=== PATIENT | male | born 1970 | race Caucasian/White ===

== ENCOUNTER 2023-03-06 23:48 | Emergency (ER) | payer OTHER ==
[2023-03-06 23:53] VITALS: BP 119/84; RESP 18; TEMP 98.1
--- NOTE | 2023-03-07 00:57 | ED ---
URI HPI - General Chief Complaint: Upper Respiratory Infection Stated Complaint: Low O2 Time Seen by Provider: 03/07/23 00:43 Source: patient, family Mode of arrival: ambulatory Limitations: no limitations - History of Present Illness Initial Comments: Patient is a 52-year-old male presenting to the emergency room with complaints of cough congestion and inability to take in a deep breath ongoing for approximately 3 days. He reports that his cough is typically nonproductive. He also reports that his oxygen levels at home have been low at times measuring 92% on room air. He reports a history of asthma but no significant asthma problems as an adult. He is a pack-a-day smoker of cigarettes and also smokes marijuana regularly. He states that he has an inhaler at home and has attempted to use it to treat his symptoms recently without any relief in his symptoms. He denies any excessive exposure to poor outdoor air quality conditions recently. He has continued to smoke. He denies any other symptoms including any chest pain, abdominal pain, nausea, vomiting, known viral exposure, fevers or chills. In addition to his asthma history as a past medical history significant for hypertension, hyperlipidemia and chronic back pain. - Related Data Previous Rx's Medication Instructions Recorded Azithromycin [Zithromax Z Pack] 1 tab PO DIRECTED 4 Days #4 tab 03/07/23 Allergies Allergy/AdvReac Type Severity Reaction Status Date / Time Penicillins Allergy Unknown Verified 03/06/23 23:54 Childhood Review of Systems ROS Statement: Those systems with pertinent positive or pertinent negative responses have been documented in the HPI. ROS Other: All systems not noted in ROS Statement are negative. Past Medical History Past Medical History: Asthma, Hyperlipidemia, Hypertension Additional Past Medical History / Comment(s): back pain History of Any Multi-Drug Resistant Organisms: None Reported Past Surgical History: No Surgical Hx Reported Past Psychological History: No Psychological Hx Reported Smoking Status: Current every day smoker Past Alcohol Use History: None Reported Past Drug Use History: Marijuana General Exam Limitations: no limitations General appearance: alert, in no apparent distress Head exam: Present: atraumatic, normocephalic, normal inspection Eye exam: Present: normal appearance, PERRL, EOMI. Absent: scleral icterus, conjunctival injection, periorbital swelling ENT exam: Present: normal exam, mucous membranes moist Neck exam: Present: normal inspection, full ROM Respiratory exam: Present: decreased breath sounds (Throughout), other (Nonproductive cough). Absent: respiratory distress, wheezes, rales, rhonchi, stridor, accessory muscle use Cardiovascular Exam: Present: regular rate, normal rhythm, normal heart sounds. Absent: systolic murmur, diastolic murmur, rubs, gallop, clicks GI/Abdominal exam: Present: soft, normal bowel sounds. Absent: distended, tenderness, guarding, rebound, rigid Extremities exam: Present: normal inspection. Absent: pedal edema, joint swelling Back exam: Present: normal inspection, full ROM Neurological exam: Present: alert, oriented X3, CN II-XII intact Psychiatric exam: Present: normal affect, normal mood Skin exam: Present: warm, dry, intact, normal color. Absent: rash Course Vital Signs 03/06/23 23:50 Temperature 98.1 F Pulse Rate 87 Respiratory 18 Rate Blood Pressure 119/84 O2 Sat by Pulse 97 Oximetry Medical Decision Making - Medical Decision Making Was pt. sent in by a medical professional or institution (, PA, ENERGY PROJECT MANAGER, urgent care, hospital, or [facility]...) When possible be specific @ -No Did you speak to anyone other than the patient for history (EMS, parent, family, police, friend...)? What history was obtained from this source @ -No Did you review nursing and triage notes (agree or disagree)? Why? @ -I reviewed and agree with nursing and triage notes Were old charts reviewed (outside hosp., previous admission, EMS record, old EKG, old radiological studies, urgent care reports/EKG's, [facility] records)? Report findings @ -No old charts were reviewed Differential Diagnosis (chest pain, altered mental status, abdominal pain women, abdominal pain men, vaginal bleeding, weakness, fever, dyspnea, syncope, headache, dizziness, GI bleed, back pain, seizure, CVA, palpatations, mental health, musculoskeletal)? @ -Differential Dyspnea: Coronary syndrome, arrhythmia, tamponade, asthma, COPD, pulmonary embolism, pneumonia, pneumothorax, pulmonary effusion, anaphylaxis, diabetic ketoacidosis, flailed chest, pulmonary contusion, diaphragmatic rupture, anemia, neuromuscular, this is not meant to be an all-inclusive list. EKG interpreted by me (3pts min.). @ -None done X-rays interpreted by me (1pt min.). @ -Chest x-ray two-view: Hyperinflation with upper lobe opacity on lateral view concerning for atypical upper lobe pneumonia. No lower lobe consolidation. CT interpreted by me (1pt min.). @ -None done U/S interpreted by me (1pt. min.). @ -None done What testing was considered but not performed or refused? (CT, X-rays, U/S, labs)? Why? @ -None What meds were considered but not given or refused? Why? @ -None Did you discuss the management of the patient with other professionals (professionals i.e. , PA, ENERGY PROJECT MANAGER, lab, RT, psych nurse, professor of social work, neck band setter, teacher, svp chief marketing officer, adult protective caseworker)? Give summary @ -No Was smoking cessation discussed for >3mins.? @ -I discussed smoking cessation for greater than 3 minutes. The risk of smoking were discussed with the patient including but not limited to risks of cancer, stroke, coronary artery disease and COPD. Also discussed with patient were multiple methods of quitting smoking. Lastly we discussed the financial cost of smoking. Was critical care preformed (if so, how long)? @ -No Were there social determinants of health that impacted care today? How? (Homelessness, low income, unemployed, alcoholism, drug addiction, transportation, low edu. Level, literacy, decrease access to med. care, [facility], rehab)? @ -No Was there de-escalation of care discussed even if they declined (Discuss DNR or withdrawal of care, Hospice)? DNR status @ -No What co-morbidities impacted this encounter? (DM, HTN, Smoking, COPD, CAD, Cancer, CVA, ARF, Chemo, Hep., AIDS, mental health diagnosis, sleep apnea, mor bid obesity)? @ -Smoker with asthma history Was patient admitted / discharged? Hospital course, mention meds given and route, prescriptions, significant lab abnormalities, going to OR and other pertinent info. @ -52-year-old male presenting to the emergency room with complaints of cough, congestion occasional hypoxemia and difficulty taking in a deep breath ongoing for a few days without any other associated symptoms. History of asthma and known smoker pack per day. Will start workup for upper respiratory infection with CBC, CMP, para swabbing for COVID, influenza and RSV along with chest x- ray. No wheeze or hypoxemia on exam no indication for medication administration at this time. Chest x-ray with opacity on lateral view concerning for atypical pneumonia in the upper lobes, clear bibasilar and hyper and inflation noted consistent with COPD. CBC unremarkable. CMP demonstrates elevated glucose 109 and low protein at 6.2 no other abnormalities. Vital swabbing for COVID, RSV and influenza all negative. No indication for further diagnostic imaging or laboratory studies at this time. Findings discussed with patient. Advised high probability for atypical pneumonia will give oral dose of Zithromax now and prescribe remaining Z-Keith to his pharmacy to start tomorrow. Encouraged smoking sensation and avoidance of prolonged exposure to current poor air qualities. Questions and concerns answered. Return parameters to the emergency room discussed. Will discharge home in stable condition on Zithromax to treat atypical pneumonia advising smoking sensation and follow-up with primary care provider. Undiagnosed new problem with uncertain prognosis? @ -No Drug Therapy requiring intensive monitoring for toxicity (Heparin, Nitro, Insulin, Cardizem)? @ -No Were any procedures done? @ -No Diagnosis/symptom? @ -Atypical upper lobe pneumonia Acute, or Chronic, or Acute on Chronic? @ -Acute Uncomplicated (without systemic symptoms) or Complicated (systemic symptoms)? @ -Uncomplicated Side effects of treatment? @ -No Exacerbation, Progression, or Severe Exacerbation? @ -No Poses a threat to life or bodily function? How? (Chest pain, USA, MS, pneumonia, PE, COPD, DKA, ARF, appy, cholecystitis, CVA, Diverticulitis, Homicidal, Suicidal, threat to staff... and all critical care pts) @ -No Case discussed with Dr. Amanda. - Lab Data Result diagrams: 03/07/23 01:12 03/07/23 01:12 Lab Results 03/07/23 03/07/23 03/07/23 Range/Units 01:12 01:12 01:12 WBC 7.7 (3.8-10.6) k/uL RBC 4.50 (4.30-5.90) m/uL Hgb 14.6 (13.0-17.5) gm/dL Hct 42.3 (39.0-53.0) % MCV 93.9 (80.0-100.0) fL MCH 32.3 (25.0-35.0) pg MCHC 34.4 (31.0-37.0) g/dL RDW 13.0 (11.5-15.5) % Plt Count 305 (150-450) k/uL MPV 7.2 Neutrophils % 57 % Lymphocytes % 30 % Monocytes % 8 % Eosinophils % 3 % Basophils % 0 % Neutrophils # 4.4 (1.3-7.7) k/uL Lymphocytes # 2.3 (1.0-4.8) k/uL Monocytes # 0.6 (0-1.0) k/uL Eosinophils # 0.3 (0-0.7) k/uL Basophils # 0.0 (0-0.2) k/uL Sodium 137 (137-145) mmol/L Potassium 4.3 (3.5-5.1) mmol/L Chloride 105 (98-107) mmol/L Carbon Dioxide 27 (22-30) mmol/L Anion Gap 5 mmol/L BUN 18 (9-20) mg/dL Creatinine 0.88 (0.66-1.25) mg/dL Est GFR (CKD-EPI)AfAm >90 (>60 ml/min/1.73 sqM) Est GFR (CKD-EPI)NonAf >90 (>60 ml/min/1.73 sqM) Glucose 109 H (74-99) mg/dL Calcium 9.7 (8.4-10.2) mg/dL Total Bilirubin 0.3 (0.2-1.3) mg/dL AST 24 (17-59) U/L ALT 20 (4-49) U/L Alkaline Phosphatase 76 (38-126) U/L Total Protein 6.2 L (6.3-8.2) g/dL Albumin 3.8 (3.5-5.0) g/dL Influenza Type A (PCR) Not Detected (Not Detectd) Influenza Type B (PCR) Not Detected (Not Detectd) RSV (PCR) Not Detected (Not Detectd) SARS-CoV-2 (PCR) Not Detected (Not Detectd) - Radiology Data Radiology results: image reviewed Disposition Clinical Impression: Atypical pneumonia Disposition: HOME SELF-CARE Condition: Stable Instructions (If sedation given, give patient instructions): Upper Respiratory Infection (ED), Bacterial Pneumonia (ED) Additional Instructions: Please complete course of antibiotic as prescribed. Smoking sensation encouraged. Avoid excessive exposure to outdoor air environments due to poor air quality at this time. Please follow-up with your primary care provider. Please return to the Emergency Department if symptoms worsen or any other concerns. Prescriptions: Azithromycin [Zithromax Z Pack] 1 tab PO DIRECTED 4 Days #4 tab Is patient prescribed a controlled substance at d/c from ED?: No Referrals: None,Stated [Primary Care Provider] - 1-2 days
[2023-03-07 01:31] LABS: Basophils % (A) 0 %; Eosinophils # (A) 0.3 k/uL (0-0.7); Eosinophils % (A) 3 %; HCT 42.3 % (39.0-53.0); HGB 14.6 gm/dL (13.0-17.5); Lymphocytes # (A) 2.3 k/uL (1.0-4.8); Lymphocytes % (A) 30 %; MCH 32.3 pg (25.0-35.0); MCHC 34.4 g/dL (31.0-37.0); MCV 93.9 fL (80.0-100.0); Mean Platelet Volume 7.2; Monocytes # (A) 0.6 k/uL (0-1.0); Monocytes % (A) 8 %; Neutrophils # (A) 4.4 k/uL (1.3-7.7); Neutrophils % (A) 57 %; Platelet Count 305 k/uL (150-450); WBC 7.7 k/uL (3.8-10.6)
[2023-03-07 01:35] LABS: ALT 20 U/L (4-49); AST 24 U/L (17-59); African American GFR (CKD) >90 (>60 ml/min/1.73 sqM); Albumin 3.8 g/dL (3.5-5.0); Alkaline Phosphatase 76 U/L (38-126); Anion Gap 5 mmol/L; Blood Urea Nitrogen 18 mg/dL (9-20); Calcium 9.7 mg/dL (8.4-10.2); Carbon Dioxide 27 mmol/L (22-30); Chloride 105 mmol/L (98-107); Glucose 109 mg/dL (74-99); Non-African American GFR(CKD) >90 (>60 ml/min/1.73 sqM); Potassium 4.3 mmol/L (3.5-5.1); Sodium 137 mmol/L (137-145); Total Bilirubin 0.3 mg/dL (0.2-1.3); Total Protein 6.2 g/dL (6.3-8.2)
[2023-03-07] MEDS ORDERED: AZITHROMYCIN 500 MG TAB PO STA (02:12)
--- NOTE | 2023-03-07 02:12 | XR ---
EXAM: XR Chest, 2 Views CLINICAL HISTORY: ITS.REASON XR Reason: dyspnea TECHNIQUE: Frontal and lateral views of the chest. COMPARISON: No relevant prior studies available. FINDINGS: Lungs: No consolidation or mass. Pleural space: No effusion. Heart: No cardiomegaly. Bones/joints: No acute findings. IMPRESSION: No acute cardiopulmonary process.
[2023-03-07 03:05] VITALS: PULSE 65
== END 2023-03-07 03:05 | disposition home or self-care (01) ==
LOC: EC 23:48
DX: J18.9 Pneumonia, unspecified organism (principal); J45.909 Unspecified asthma, uncomplicated; I10 Essential (primary) hypertension; F17.200 Nicotine dependence, unspecified, uncomplicated; F12.90 Cannabis use, unspecified, uncomplicated; Z88.0 Allergy status to penicillin; Z20.822 Contact with and (suspected) exposure to COVID-19
CPT/HCPCS: 36415; 71046; 80053; 85025; 87636; 99283

== ENCOUNTER 2023-05-01 03:37 | Emergency (ER) | payer OTHER ==
[2023-05-01 03:42] VITALS: RESP 18
--- NOTE | 2023-05-01 04:20 | ED ---
Headache HPI <Sai Le - Last Filed: 05/01/23 07:44> - General Source: RN notes reviewed, old records reviewed Mode of arrival: ambulatory Limitations: no limitations - History of Present Illness MD Complaint: headache, "migraine" -: hour(s) Onset Description: gradual Location: temporal, diffuse Severity: moderate Severity scale (1-10): 7 Quality: throbbing Consistency: constant Improves With: nothing Worsens With: none Associated Symptoms: nausea, vomiting, weakness Other Symptoms: other (0) Treatments Prior to Arrival: none <Shaun Amanda - Last Filed: 05/05/23 01:21> - General Chief Complaint: Headache Stated Complaint: Headache, V/N Time Seen by Provider: 05/01/23 03:39 - History of Present Illness Initial Comments: This is a 52-year-old male to the emergency department for evaluation. Patient has multiple complaints today. Bodyaches body pains headache and neck pain chest pain back pain weakness not feeling well and nausea. Patient is unsure of onset of symptoms. But thinks he has been feeling bad throughout most of the day. No fevers no sick contacts no travel history (Shaun Amanda) - Related Data Previous Rx's Medication Instructions Recorded Azithromycin [Zithromax Z Pack] 1 tab PO DIRECTED 4 Days #4 tab 03/07/23 Nirmatrelvir/Ritonavir [Paxlovid 3 each PO BID #30 each 05/01/23 300-100 mg Pack (Eua)] Albuterol Sulfate [Albuterol 1 puff PO Q4-6H #8.5 gm 05/03/23 Sulfate Hfa] Allergies Allergy/AdvReac Type Severity Reaction Status Date / Time Penicillins Allergy Unknown Verified 05/03/23 06:39 Childhood Review of Systems ROS Other: All systems not noted in ROS Statement are negative. <Sai Le - Last Filed: 05/01/23 07:44> ROS Other: All systems not noted in ROS Statement are negative. <Shaun Amanda - Last Filed: 05/05/23 01:21> ROS Statement: Those systems with pertinent positive or pertinent negative responses have been documented in the HPI. Past Medical History Past Medical History: Asthma, Hyperlipidemia, Hypertension Additional Past Medical History / Comment(s): back pain History of Any Multi-Drug Resistant Organisms: None Reported Past Surgical History: No Surgical Hx Reported Past Psychological History: No Psychological Hx Reported Smoking Status: Current every day smoker Past Alcohol Use History: None Reported Past Drug Use History: Marijuana <Shaun Amanda - Last Filed: 05/05/23 01:21> General Exam Limitations: no limitations General appearance: alert, in no apparent distress, anxious Head exam: Present: atraumatic, normocephalic, normal inspection Eye exam: Present: normal appearance, PERRL, EOMI. Absent: scleral icterus, conjunctival injection, periorbital swelling ENT exam: Present: normal exam, mucous membranes moist Neck exam: Present: normal inspection. Absent: tenderness, meningismus, lymphadenopathy Respiratory exam: Present: normal lung sounds bilaterally. Absent: respiratory distress, wheezes, rales, rhonchi, stridor Cardiovascular Exam: Present: regular rate, normal rhythm, normal heart sounds. Absent: systolic murmur, diastolic murmur, rubs, gallop, clicks GI/Abdominal exam: Present: soft, normal bowel sounds. Absent: distended, tenderness, guarding, rebound, rigid Extremities exam: Present: normal inspection, full ROM, normal capillary refill. Absent: tenderness, pedal edema, joint swelling, calf tenderness Back exam: Present: normal inspection Neurological exam: Present: alert, oriented X3, CN II-XII intact Psychiatric exam: Present: normal affect, normal mood Skin exam: Present: warm, dry, intact, normal color. Absent: rash <Shaun Amanda - Last Filed: 05/05/23 01:21> Course <Shaun Amanda - Last Filed: 05/05/23 01:21> Vital Signs 05/01/23 05/01/23 03:39 07:22 Temperature 98.8 F 97 F L Pulse Rate 101 H 68 Respiratory 18 18 Rate Blood Pressure 120/80 132/82 O2 Sat by Pulse 98 96 Oximetry - Reevaluation(s) Reevaluation #1: 05/01/23 06:07 Medical record is reviewed (Shaun Amanda) Reevaluation #2: 05/01/23 06:08 Patient symptoms are improving (Shaun Amanda) Reevaluation #3: Patient informed results and questions answered (Shaun Amanda) Reevaluation #4: 05/01/23 04:20 Was pt. sent in by a medical professional or institution (MAGDI Bright, MARINE UNDERWRITER, urgent care, hospital, or jail...) When possible be specific @ -no Did you speak to anyone other than the patient for history (EMS, parent, family, police, friend...)? What history was obtained from this source @ -no Did you review nursing and triage notes (agree or disagree)? Why? @ -agree Are old charts reviewed (outside hosp., previous admission, EMS record, old EKG, old radiological studies, urgent care reports/EKG's, jail records)? Report findings @ -yes Differential Diagnosis (chest pain, altered mental status, abdominal pain women, abdominal pain men, vaginal bleeding, weakness, fever, dyspnea, syncope, headache, dizziness, GI bleed, back pain, seizure, CVA, palpatations, mental health, musculoskeletal)? @ -prior EKG interpreted by me (3pts min.). @ -no X-rays interpreted by me (1pt min.). @ -no CT interpreted by me (1pt min.). @ -yes U/S interpreted by me (1pt. min.). @ -no What testing was considered but not performed or refused? (CT, X-rays, U/S, labs)? Why? @ -none What meds were considered but not given or refused? Why? @ -none Did you discuss the management of the patient with other professionals (professionals i.e. MAGDI Bright, MARINE UNDERWRITER, lab, RT, psych nurse, social welfare clerk, watch technician, teacher, wildlife officer, onsite case manager)? Give summary @ -no Was smoking cessation discussed for >3mins.? @ -no Was critical care preformed (if so, how long)? @ -no Were there social determinants of health that impacted care today? How? (Homelessness, low income, unemployed, alcoholism, drug addiction, transportation, low edu. Level, literacy, decrease access to med. care, senior living, rehab)? @ -none Was there de-escalation of care discussed even if they declined (Discuss DNR or withdrawal of care, Hospice)? DNR status @ -no What co-morbidities impacted this encounter? (DM, HTN, Smoking, COPD, CAD, Cancer, CVA, ARF, Chemo, Hep., AIDS, mental health diagnosis, sleep apnea, mo rbid obesity)? @ -none Was patient admitted / discharged? Hospital course, mention meds given and r oute, prescriptions, significant lab abnormalities, going to OR and other pertinent info. @ - 52 male to the emergency department today. He presents to the ER with multiple complaints, headache and diffuse body aches and pains. Patient is positive for coronavirus Discharged Undiagnosed new problem with uncertain prognosis? @ -no Drug Therapy requiring intensive monitoring for toxicity (Heparin, Nitro, Insulin, Cardizem)? @ -no Were any procedures done? @ -no Diagnosis/symptom? @ -Coronavirus, headache Acute, or Chronic, or Acute on Chronic? @ -Acute Uncomplicated (without systemic symptoms) or Complicated (systemic symptoms)? @ -Complicated Side effects of treatment? @ -no Exacerbation, Progression, or Severe Exacerbation? @ -exacerbation Poses a threat to life or bodily function? How? (Chest pain, USA, AR, pneumonia, PE, COPD, DKA, ARF, appy, cholecystitis, CVA, Diverticulitis, Homicidal, Suicidal, threat to staff... and all critical care pts) @ -Yes with severe headache cause of headache could be life-threatening (Shaun Amanda) Reevaluation #5: Differential Headache: Migraine, tension, cluster, carbon monoxide, central venous thrombosis, pension karma temporal arteritis, acute closure glaucoma, intercranial hemorrhage, mastoiditis, sinusitis, head injury, this is not meant to be an all-inclusive li st.0 (Shaun Amanda) Medical Decision Making - Lab Data Result diagrams: 05/01/23 04:54 05/01/23 04:54 <Sai Le - Last Filed: 05/01/23 07:44> - Lab Data Result diagrams: 05/01/23 04:54 05/01/23 04:54 - Radiology Data Radiology results: report reviewed (CT brain is negative for acute disease), image reviewed <Shaun Amanda - Last Filed: 05/05/23 01:21> - Medical Decision Making Case endorsed to me by Dr. Wilson For probable discharge head CT negative. Patient reevaluated and resting comfortably in bed. Patient complains of cough and congestion and fatigue and myalgias. COVID-19 test positive. Patient updated. Patient is receptive to antibiotic prescription and this will be sent to pharmacy. Diagnosis: COVID-19 Acute (Sai Le) 52 male to the emergency department today. He presents to the ER with multiple complaints, headache and diffuse body aches and pains. Patient is positive for coronavirus (Shaun Amanda) - Lab Data Lab Results 05/01/23 05/01/23 05/01/23 Range/Units 04:54 04:54 04:54 WBC 8.0 (3.8-10.6) k/uL RBC 4.42 (4.30-5.90) m/uL Hgb 14.0 (13.0-17.5) gm/dL Hct 41.6 (39.0-53.0) % MCV 94.1 (80.0-100.0) fL MCH 31.7 (25.0-35.0) pg MCHC 33.7 (31.0-37.0) g/dL RDW 13.3 (11.5-15.5) % Plt Count 205 (150-450) k/uL MPV 7.5 Neutrophils % 74 % Lymphocytes % 10 % Monocytes % 14 % Eosinophils % 1 % Basophils % 0 % Neutrophils # 5.9 (1.3-7.7) k/uL Lymphocytes # 0.8 L (1.0-4.8) k/uL Monocytes # 1.1 H (0-1.0) k/uL Eosinophils # 0.1 (0-0.7) k/uL Basophils # 0.0 (0-0.2) k/uL PT 10.3 (9.0-12.0) sec INR 1.0 (<1.2) APTT 27.6 (22.0-30.0) sec Sodium 138 (137-145) mmol/L Potassium 3.6 (3.5-5.1) mmol/L Chloride 106 (98-107) mmol/L Carbon Dioxide 24 (22-30) mmol/L Anion Gap 8 mmol/L BUN 13 (9-20) mg/dL Creatinine 1.03 (0.66-1.25) mg/dL Est GFR (CKD-EPI)AfAm >90 (>60 ml/min/1.73 sqM) Est GFR (CKD-EPI)NonAf 85 (>60 ml/min/1.73 sqM) Glucose 95 (74-99) mg/dL Calcium 9.1 (8.4-10.2) mg/dL Phosphorus 3.2 (2.5-4.5) mg/dL Magnesium 1.8 (1.6-2.3) mg/dL Total Bilirubin 0.4 (0.2-1.3) mg/dL AST 26 (17-59) U/L ALT 19 (4-49) U/L Alkaline Phosphatase 78 (38-126) U/L Troponin I (0.000-0.034) ng/mL C-Reactive Protein 1.2 H (<1.0) mg/dL NT-Pro-B Natriuret Pep 44 pg/mL Total Protein 6.6 (6.3-8.2) g/dL Albumin 4.0 (3.5-5.0) g/dL TSH 0.268 L (0.465-4.680) mIU/L Urine Color Urine Appearance (Clear) Urine pH (5.0-8.0) Ur Specific [place] (1.001-1.035) Urine Protein (Negative) Urine Glucose (UA) (Negative) Urine Ketones (Negative) Urine Blood (Negative) Urine Nitrite (Negative) Urine Bilirubin (Negative) Urine Urobilinogen (<2.0) mg/dL Ur Leukocyte Esterase (Negative) Urine RBC (0-5) /hpf Urine WBC (0-5) /hpf Ur Squamous Epith Cells (0-4) /hpf Urine Mucus (None) /hpf Influenza Type A (PCR) (Not Detectd) Influenza Type B (PCR) (Not Detectd) RSV (PCR) (Not Detectd) SARS-CoV-2 (PCR) (Not Detectd) 05/01/23 05/01/23 05/01/23 Range/Units 04:54 05:10 05:31 WBC (3.8-10.6) k/uL RBC (4.30-5.90) m/uL Hgb (13.0-17.5) gm/dL Hct (39.0-53.0) % MCV (80.0-100.0) fL MCH (25.0-35.0) pg MCHC (31.0-37.0) g/dL RDW (11.5-15.5) % Plt Count (150-450) k/uL MPV Neutrophils % % Lymphocytes % % Monocytes % % Eosinophils % % Basophils % % Neutrophils # (1.3-7.7) k/uL Lymphocytes # (1.0-4.8) k/uL Monocytes # (0-1.0) k/uL Eosinophils # (0-0.7) k/uL Basophils # (0-0.2) k/uL PT (9.0-12.0) sec INR (<1.2) APTT (22.0-30.0) sec Sodium (137-145) mmol/L Potassium (3.5-5.1) mmol/L Chloride (98-107) mmol/L Carbon Dioxide (22-30) mmol/L Anion Gap mmol/L BUN (9-20) mg/dL Creatinine (0.66-1.25) mg/dL Est GFR (CKD-EPI)AfAm (>60 ml/min/1.73 sqM) Est GFR (CKD-EPI)NonAf (>60 ml/min/1.73 sqM) Glucose (74-99) mg/dL Calcium (8.4-10.2) mg/dL Phosphorus (2.5-4.5) mg/dL Magnesium (1.6-2.3) mg/dL Total Bilirubin (0.2-1.3) mg/dL AST (17-59) U/L ALT (4-49) U/L Alkaline Phosphatase (38-126) U/L Troponin I <0.012 (0.000-0.034) ng/mL C-Reactive Protein (<1.0) mg/dL NT-Pro-B Natriuret Pep pg/mL Total Protein (6.3-8.2) g/dL Albumin (3.5-5.0) g/dL TSH (0.465-4.680) mIU/L Urine Color Yellow Urine Appearance Clear (Clear) Urine pH 5.5 (5.0-8.0) Ur Specific [place] 1.035 (1.001-1.035) Urine Protein 1+ H (Negative) Urine Glucose (UA) Negative (Negative) Urine Ketones Negative (Negative) Urine Blood Trace H (Negative) Urine Nitrite Negative (Negative) Urine Bilirubin Negative (Negative) Urine Urobilinogen <2.0 (<2.0) mg/dL Ur Leukocyte Esterase Negative (Negative) Urine RBC 2 (0-5) /hpf Urine WBC 1 (0-5) /hpf Ur Squamous Epith Cells <1 (0-4) /hpf Urine Mucus Many H (None) /hpf Influenza Type A (PCR) Not Detected (Not Detectd) Influenza Type B (PCR) Not Detected (Not Detectd) RSV (PCR) Not Detected (Not Detectd) SARS-CoV-2 (PCR) Detected A (Not Detectd) Disposition Is patient prescribed a controlled substance at d/c from ED?: No Time of Disposition: 07:46 <Sai Le - Last Filed: 05/01/23 07:44> Is patient prescribed a controlled substance at d/c from ED?: No <Shaun Amanda - Last Filed: 05/05/23 01:21> Clinical Impression: COVID-19, Headache, Weakness, Coronavirus infection Disposition: HOME SELF-CARE Condition: Stable Instructions (If sedation given, give patient instructions): Acute Headache (ED), COVID-19 (Coronavirus Disease 2019) (ED) Additional Instructions: Prescription sent to pharmacy. [id number] vitamin C, vitamin D, and clean. Tylenol as needed. Return for difficulty breathing, not tolerating fluids, worsening symptoms or other concerns. Prescriptions: Nirmatrelvir/Ritonavir [Paxlovid 300-100 mg Pack (Eua)] 3 each PO BID #30 each Referrals: Ilya Kelly MD [STAFF PHYSICIAN] - 1-2 days
[2023-05-01] MEDS ORDERED: KETOROLAC 15 MG/ML 1 ML VIAL IVP STA (04:44)
[2023-05-01] MEDS ORDERED: SODIUM CHLORIDE 0.9% 1,000 ML IV STA ×2 (04:44)
[2023-05-01] MEDS ORDERED: MORPHINE SULFATE 4 MG/ML SYRINGE IV STA (04:44)
[2023-05-01] MEDS ORDERED: ACETAMINOPHEN IV (For NPO) 1,000 MG in EMPTY BAG 1 BAG IVPB STA (04:44)
[2023-05-01 05:37] LABS: Calcium 9.1 mg/dL (8.4-10.2); Magnesium 1.8 mg/dL (1.6-2.3); Potassium 3.6 mmol/L (3.5-5.1); Sodium 138 mmol/L (137-145)
[2023-05-01 05:38] LABS: ALT 19 U/L (4-49); AST 26 U/L (17-59); African American GFR (CKD) >90 (>60 ml/min/1.73 sqM); Alkaline Phosphatase 78 U/L (38-126); Anion Gap 8 mmol/L; Blood Urea Nitrogen 13 mg/dL (9-20); C Reactive Protein 1.2 mg/dL (<1.0); Carbon Dioxide 24 mmol/L (22-30); Chloride 106 mmol/L (98-107); Glucose 95 mg/dL (74-99); Non-African American GFR(CKD) 85 (>60 ml/min/1.73 sqM); Phosphorus 3.2 mg/dL (2.5-4.5); Total Bilirubin 0.4 mg/dL (0.2-1.3); Total Protein 6.6 g/dL (6.3-8.2)
[2023-05-01 05:45] LABS: NT-Pro-B-Type Natriuretic Pept 44 pg/mL
[2023-05-01 05:52] LABS: Basophils % (A) 0 %; Eosinophils # (A) 0.1 k/uL (0-0.7); Eosinophils % (A) 1 %; HCT 41.6 % (39.0-53.0); Lymphocytes # (A) 0.8 k/uL (1.0-4.8); Lymphocytes % (A) 10 %; MCH 31.7 pg (25.0-35.0); MCHC 33.7 g/dL (31.0-37.0); MCV 94.1 fL (80.0-100.0); Mean Platelet Volume 7.5; Monocytes # (A) 1.1 k/uL (0-1.0); Monocytes % (A) 14 %; Neutrophils # (A) 5.9 k/uL (1.3-7.7); Neutrophils % (A) 74 %; Platelet Count 205 k/uL (150-450); RBC 4.42 m/uL (4.30-5.90); RDW 13.3 % (11.5-15.5)
[2023-05-01 05:56] LABS: Partial Thromboplastin Time 27.6 sec (22.0-30.0); Prothrombin Time 10.3 sec (9.0-12.0)
[2023-05-01 06:04] LABS: Appearance,Urine Clear (Clear); Bilirubin,Urine Negative (Negative); Blood,Urine Trace (Negative); Glucose,Urine (UA) Negative (Negative); Ketones,Urine Negative (Negative); Leukocyte Esterase,Urine Negative (Negative); Mucus,Urine Many /hpf; Nitrite,Urine Negative (Negative); PH, Urine 5.5 (5.0-8.0); Protein,Urine 1+ (Negative); RBC,Urine 2 /hpf (0-5); Specific Gravity,Urine 1.035 (1.001-1.035); Squamous Epithelial Cell,Urine <1 /hpf (0-4); Urobilinogen,Urine <2.0 mg/dL (<2.0); WBC,Urine 1 /hpf (0-5)
[2023-05-01 06:37] LABS: Color,Urine Yellow
[2023-05-01] MEDS ORDERED: diphenhydrAMINE 50 MG/ML 1 ML VIAL IVP STA (06:37)
[2023-05-01] MEDS ORDERED: PROCHLORPERAZINE INJ 10 MG/2 ML VIAL IVP STA (06:37)
[2023-05-01] MEDS ORDERED: MORPHINE SULFATE 4 MG/ML SYRINGE IVP STA (06:37)
[2023-05-01 07:25] VITALS: BP 132/82; PULSE 68; TEMP 97
--- NOTE | 2023-05-01 07:29 | CT ---
History EXAMINATION TYPE: CT brain wo con DATE OF EXAM: 05/01/2023 COMPARISON: None HISTORY: Headache CT DLP: 1277.[address] of the brain was performed. The ventricles, basal cisterns and sulci overlying the cerebral convexities demonstrate mild enlargem ent. There is no evidence for intracranial hemorrhage or sulcal effacement. There is decreased attenuation about the periventricular white matter and deep white matter of both c erebral hemispheres, compatible with chronic small vessel ischemia. Differential diagnosis does inclu de demyelination. No mass effects are seen.No midline shift. Osseous calvarium is intact. If symptoms persist consider MRI. IMPRESSION: 1. Age related atrophic and chronic small vessel ischemic change without acute intracranial process s een at this time.
== END 2023-05-01 08:06 | disposition home or self-care (01) ==
LOC: EC 03:37
DX: U07.1 COVID-19 (principal); I67.82 Cerebral ischemia; J45.909 Unspecified asthma, uncomplicated; I10 Essential (primary) hypertension; F17.200 Nicotine dependence, unspecified, uncomplicated; F12.90 Cannabis use, unspecified, uncomplicated; Z88.0 Allergy status to penicillin
CPT/HCPCS: 36415; 83880; 80053; 83735; 84100; 84443; 84484; 85025; 85610; 85730; 86140; 81001; 87636; 70450; 99284; 96365; 96375 ×4; 96361 ×3; 96376; J2270; J1200; J0780; J0131; J1885

== ENCOUNTER 2023-05-03 06:30 | Emergency (ER) | payer OTHER ==
[2023-05-03 06:39] VITALS: BP 133/85; PULSE 68; TEMP 97.9
--- NOTE | 2023-05-03 07:07 | ED ---
General Adult HPI - General Chief complaint: Shortness of Breath Stated complaint: COVID SYMPTOMS SOB Time Seen by Provider: 05/03/23 06:43 Source: patient, family, RN notes reviewed, old records reviewed Mode of arrival: ambulatory Limitations: no limitations - History of Present Illness Initial comments: Nontoxic-appearing 52-year-old male presents to the emergency room with family complaining of continued shortness of breath after seen in the ER 2 days ago and diagnosed with coronavirus. Today states his pulse ox at home was reading lower 90s. He is taking the Paxlovid as presccribed. States he does have a history of childhood asthma but does not have albuterol. Is a daily smoke with history of hypertension and high cholesterol. Does not have primary care doctor. -: days(s) (5) Location: pelvis Quality: constant Consistency: constant Associated Symptoms: cough, malaise, shortness of breath Treatments Prior to Arrival: other (paxlovid) - Related Data Previous Rx's Medication Instructions Recorded Azithromycin [Zithromax Z Pack] 1 tab PO DIRECTED 4 Days #4 tab 03/07/23 Nirmatrelvir/Ritonavir [Paxlovid 3 each PO BID #30 each 05/01/23 300-100 mg Pack (Eua)] Albuterol Sulfate [Albuterol 1 puff PO Q4-6H #8.5 gm 05/03/23 Sulfate Hfa] Allergies Allergy/AdvReac Type Severity Reaction Status Date / Time Penicillins Allergy Unknown Verified 05/03/23 06:39 Childhood Review of Systems ROS Statement: Those systems with pertinent positive or pertinent negative responses have been documented in the HPI. ROS Other: All systems not noted in ROS Statement are negative. Past Medical History Past Medical History: Asthma, Hyperlipidemia, Hypertension Additional Past Medical History / Comment(s): back pain History of Any Multi-Drug Resistant Organisms: None Reported Past Surgical History: No Surgical Hx Reported Past Psychological History: No Psychological Hx Reported Smoking Status: Current every day smoker, Vaper Past Alcohol Use History: None Reported Past Drug Use History: Marijuana General Exam Limitations: no limitations General appearance: alert, in no apparent distress Head exam: Present: atraumatic, normocephalic Eye exam: Present: normal appearance. Absent: scleral icterus, conjunctival injection, periorbital swelling ENT exam: Present: normal oropharynx, mucous membranes moist Neck exam: Present: full ROM. Absent: tenderness, meningismus Respiratory exam: Present: normal lung sounds bilaterally. Absent: respiratory distress, wheezes, rales, rhonchi, stridor, accessory muscle use, decreased breath sounds Cardiovascular Exam: Present: regular rate GI/Abdominal exam: Present: soft. Absent: distended, tenderness, guarding, rebound, rigid Extremities exam: Present: normal capillary refill Back exam: Absent: tenderness Neurological exam: Present: alert, oriented X3 Psychiatric exam: Present: normal affect, normal mood Skin exam: Present: warm, dry, normal color. Absent: cyanosis, diaphoretic, petechiae, pallor Course Vital Signs 05/03/23 05/03/23 06:36 06:54 Temperature 97.9 F Pulse Rate 68 Respiratory 18 18 Rate Blood Pressure 133/85 O2 Sat by Pulse 98 Oximetry Medical Decision Making - Medical Decision Making Was pt. sent in by a medical professional or institution (, PA, REINSURANCE CLERK, urgent care, hospital, or [place] [facility] [place]...) When possible be specific @ -No Did you speak to anyone other than the patient for history (EMS, parent, family, police, friend...)? What history was obtained from this source @ -No Did you review nursing and triage notes (agree or disagree)? Why? @ -I reviewed and agree with nursing and triage notes Were old charts reviewed (outside hosp., previous admission, EMS record, old EKG, old radiological studies, urgent care reports/EKG's, [place] [facility] [place] records)? Report findings @ -Year visit from 05/01/2023, CT report brain negative. Differential Diagnosis (chest pain, altered mental status, abdominal pain women, abdominal pain men, vaginal bleeding, weakness, fever, dyspnea, syncope, headache, dizziness, GI bleed, back pain, seizure, CVA, palpatations, mental health, musculoskeletal)? @ Differential Dyspnea: Coronary syndrome, arrhythmia, tamponade, asthma, COPD, pulmonary embolism, pneumonia, pneumothorax, pulmonary effusion, anaphylaxis, diabetic ketoacidosis, flailed chest, pulmonary contusion, diaphragmatic rupture, anemia, neuromuscular, this is not meant to be an all-inclusive list. EKG interpreted by me (3pts min.). @ -n/a X-rays interpreted by me (1pt min.). @ -None done CT interpreted by me (1pt min.). @ -None done U/S interpreted by me (1pt. min.). @ -None done What testing was considered but not performed or refused? (CT, X-rays, U/S, labs)? Why? @ -Chest x-ray was considered however pulse ox 98% on room air, lungs sounds are clear to auscultation, patient was diagnosed with coronavirus 2 days ago, What meds were considered but not given or refused? Why? @ -None Did you discuss the management of the patient with other professionals (professionals i.e. , PA, REINSURANCE CLERK, lab, RT, psych nurse, outreach and education social worker, carroter, teacher, boat officer, director of casework services)? Give summary @ -No Was smoking cessation discussed for >3mins.? @ -yes Was critical care preformed (if so, how long)? @ -No Were there social determinants of health that impacted care today? How? (Homelessness, low income, unemployed, alcoholism, drug addiction, transportation, low edu. Level, literacy, decrease access to med. care, shelter, rehab)? @ -No primary care doctor Was there de-escalation of care discussed even if they declined (Discuss DNR or withdrawal of care, Hospice)? DNR status @ -No What co-morbidities impacted this encounter? (DM, HTN, Smoking, COPD, CAD, Cancer, CVA, ARF, Chemo, Hep., AIDS, mental health diagnosis, sleep apnea, morbid obesity)? @ -Smoker, hypertension, asthma, hyperlipidemia Was patient admitted / discharged? Hospital course, mention meds given and route, prescriptions, significant lab abnormalities, going to OR and other pertinent info. @ -Discharged Nontoxic-appearing 52-year-old male presents to the emergency room with family complaining of continued shortness of breath after seen in the ER 2 days ago and diagnosed with coronavirus. Denies any fevers. Today states his pulse ox at home was reading lower 90s. He is taking the Paxlovid as presccribed. States he does have a history of childhood asthma but does not have albuterol. Is a daily smoke with history of hypertension and high cholesterol. Does not have primary care doctor. Patient was seen 2 days ago with multiple complaints and diagnosed with coronavirus. He also complained of a headache and a CT was performed and negative. Patient states he has not been vaccinated against coronavirus but he did have Covid last year in [place]. On physical exam patient's lung sounds are clear to auscultation. No respiratory distress or accessory muscle use. No chest pain. Pulse ox 98% on room air. Patient instructed to stop smoking. He was given a prescription for albuterol inhaler. Directed to continue taking the Paxlovid as prescribed. Return to the emergency room with pain or concerning symptoms. Patient and family are agreeable to this plan of care. Case discussed with Dr. Grimes Undiagnosed new problem with uncertain prognosis? @ -No Drug Therapy requiring intensive monitoring for toxicity (Heparin, Nitro, Insulin, Cardizem)? @ -No Were any procedures done? @ -No Diagnosis/symptom? @ -Coronavirus Acute, or Chronic, or Acute on Chronic? @ -Acute Uncomplicated (without systemic symptoms) or Complicated (systemic symptoms)? @ -Uncomplicated Side effects of treatment? @ -No Exacerbation, Progression, or Severe Exacerbation? @ -No Poses a threat to life or bodily function? How? (Chest pain, USA, [place], pneumonia, PE, COPD, DKA, ARF, appy, cholecystitis, CVA, Diverticulitis, Homicidal, Suicidal, threat to staff... and all critical care pts) @ -No Disposition Clinical Impression: COVID-19 Disposition: HOME SELF-CARE Condition: Good Instructions (If sedation given, give patient instructions): COVID-19 (Coronavirus Disease 2019) (ED), Face Coverings (Masks) and COVID-19 (ED), How to Recover from COVID-19 at Home (ED), Social Distancing Guidelines for COVID-19 (ED) Additional Instructions: Stop smoking. Use albuterol inhaler 1-2 puffs every 4-6 hours as needed for any wheezing or shortness of breath. Continue taking Paxlovid. Return to the emergency room with any new or concerning symptoms. Prescriptions: Albuterol Sulfate [Albuterol Sulfate Hfa] 1 puff PO Q4-6H #8.5 gm Is patient prescribed a controlled substance at d/c from ED?: No Referrals: None,Stated [Primary Care Provider] - 1-2 days Time of Disposition: 07:07
[2023-05-03 07:52] VITALS: RESP 20
== END 2023-05-03 07:48 | disposition home or self-care (01) ==
LOC: EC 06:30
DX: U07.1 COVID-19 (principal); I10 Essential (primary) hypertension; J45.909 Unspecified asthma, uncomplicated; F17.200 Nicotine dependence, unspecified, uncomplicated; Z88.0 Allergy status to penicillin
CPT/HCPCS: 99284; 99285

== ENCOUNTER 2023-12-31 20:10 | Emergency (ER) | payer OTHER ==
[2023-12-31 20:44] LABS: Basophils # (A) 0.1 k/uL (0-0.2); Basophils % (A) 1 %; Eosinophils # (A) 0.2 k/uL (0-0.7); Eosinophils % (A) 2 %; HCT 49.2 % (39.0-53.0); HGB 16.4 gm/dL (13.0-17.5); Lymphocytes # (A) 1.8 k/uL (1.0-4.8); Lymphocytes % (A) 17 %; MCH 31.8 pg (25.0-35.0); MCHC 33.5 g/dL (31.0-37.0); MCV 94.9 fL (80.0-100.0); Mean Platelet Volume 7.1; Monocytes # (A) 0.8 k/uL (0-1.0); Monocytes % (A) 8 %; Neutrophils % (A) 72 %; Platelet Count 291 k/uL (150-450); RBC 5.18 m/uL (4.30-5.90); RDW 13.1 % (11.5-15.5); WBC 11.1 k/uL (3.8-10.6)
[2023-12-31 20:48] VITALS: BP 146/108; PULSE 106; RESP 18; TEMP 97.3
[2023-12-31 20:54] LABS: ALT 15 U/L (4-49); African American GFR (CKD) >90 (>60 ml/min/1.73 sqM); Anion Gap 13 mmol/L; Blood Urea Nitrogen 11 mg/dL (9-20); Calcium 9.6 mg/dL (8.4-10.2); Carbon Dioxide 20 mmol/L (22-30); Chloride 107 mmol/L (98-107); Glucose 133 mg/dL (74-99); Non-African American GFR(CKD) >90 (>60 ml/min/1.73 sqM); Sodium 140 mmol/L (137-145); Total Bilirubin 0.6 mg/dL (0.2-1.3)
[2023-12-31 21:04] LABS: AST 29 U/L (17-59); Magnesium 1.8 mg/dL (1.6-2.3); Potassium 4.5 mmol/L (3.5-5.1); Total Protein 7.2 g/dL (6.3-8.2)
[2023-12-31 21:05] LABS: Albumin 4.5 g/dL (3.5-5.0); Alkaline Phosphatase 79 U/L (38-126); INR 0.9 (<1.2)
[2023-12-31 21:06] LABS: Partial Thromboplastin Time 24.4 sec (22.0-30.0); Prothrombin Time 10.1 sec (10.0-12.5)
--- NOTE | 2023-12-31 21:08 | ED ---
Chest Pain HPI - General Chief Complaint: Chest Pain Stated Complaint: chest pain elevated heart rate Time Seen by Provider: 12/31/23 21:05 Source: patient, RN notes reviewed Mode of arrival: wheelchair Limitations: no limitations - History of Present Illness Initial Comments: Quick [id number] male with history of hypertension presenting with chest pain x 1 day. States chest pain is substernal and does not radiate. He is also complaining of elevated heart rate. - Related Data Previous Rx's Medication Instructions Recorded Azithromycin [Zithromax Z Pack] 1 tab PO DIRECTED 4 Days #4 tab 03/07/23 Nirmatrelvir/Ritonavir [Paxlovid 3 each PO BID #30 each 05/01/23 300-100 mg Pack (Eua)] Albuterol Sulfate [Albuterol 1 puff PO Q4-6H #8.5 gm 05/03/23 Sulfate Hfa] Allergies Allergy/AdvReac Type Severity Reaction Status Date / Time Penicillins Allergy Unknown Verified 12/31/23 20:16 Childhood Review of Systems ROS Statement: Those systems with pertinent positive or pertinent negative responses have been documented in the HPI. ROS Other: All systems not noted in ROS Statement are negative. Past Medical History Past Medical History: Asthma, Hyperlipidemia, Hypertension Additional Past Medical History / Comment(s): back pain History of Any Multi-Drug Resistant Organisms: None Reported Past Surgical History: Back Surgery Past Psychological History: No Psychological Hx Reported Smoking Status: Current every day smoker, Vaper Past Alcohol Use History: Rare Past Drug Use History: Marijuana General Exam - General Exam Comments Initial Comments: Visual Physical Exam Vital signs reviewed General: Well-appearing, nontoxic, no acute distress. Head: Normocephalic, atraumatic Eyes: PERRLA, EOMI ENT: Airway patent Chest: Nonlabored breathing Skin: No visual rash, normal skin tone Neuro: Alert and oriented 3 Musculoskeletal: No gross abnormalities Limitations: no limitations Course Vital Signs 12/31/23 20:16 Temperature 97.3 F L Pulse Rate 106 H Respiratory 18 Rate Blood Pressure 146/108 O2 Sat by Pulse 97 Oximetry Chest Pain MDM - MDM I completed the quick note portion of this chart signed Marcella Beaulieu PA-C Patient left AGAINST MEDICAL ADVICE. Risks discussed with patient and patient shows understanding. Disposition Clinical Impression: Chest pain Disposition: LEFT AGAINST MEDICAL ADVICE Referrals: Ethel English MD [Primary Care Provider] - 1-2 days
--- NOTE | 2023-12-31 23:28 | XR ---
EXAMINATION TYPE: XR chest 2V DATE OF EXAM: 12/31/2023 COMPARISON: Prior chest x-ray March 07, 2023 HISTORY: Chest pain. TECHNIQUE: Frontal and lateral views of the chest are obtained. FINDINGS: There is no focal air space opacity, pleural effusion, or pneumothorax seen. The cardiac silhouette size is stable and within normal limits. The osseous structures are intact. IMPRESSION: No acute process. No significant change from prior.
== END 2023-12-31 23:46 | disposition left against medical advice (07) ==
LOC: EC 20:10
DX: R07.89 Other chest pain (principal); F17.290 Nicotine dependence, other tobacco product, uncomplicated; Z53.29 Procedure and treatment not carried out because of patient's decision for other reasons; Z88.0 Allergy status to penicillin
CPT/HCPCS: 36415; 71046; 80053; 83735; 84484; 85025; 85610; 85730; 93005; 99284